=== PATIENT | female | born 2000 | race Caucasian/White ===

== ENCOUNTER 2023-07-02 03:07 | Emergency (ER) | payer OTHER, SELFPAY ==
[2023-07-02 03:13] VITALS: BP 108/68; PULSE 121; RESP 16; TEMP 37.1; O2SAT 96; BMI 25.1
[2023-07-02 03:17] VITALS: BP 114/58; PULSE 116; RESP 18; O2SAT 98
[2023-07-02 03:34] VITALS: BP 114/58; PULSE 108
[2023-07-02] MEDS: EPINEPHrine 1 MG/ML VIAL 0.3 MG IM (03:34)
[2023-07-02 04:00] VITALS: BP 118/84; PULSE 118; RESP 18; O2SAT 98
--- NOTE | 2023-07-02 04:44 | ED.GENADULT ---
HPI - General Adult General Chief complaint: Allergic Reaction Stated complaint: hives Time Seen by Provider: 07/02/23 03:29 History of Present Illness HPI narrative: The patient started to feel itchy at around 19:00 earlier this evening. Later she looked in the mirror and realized she had a lot of hives on her body. She took some Benadryl without much relief. She then called the school nurse who told her she could take an additional dose of Benadryl but she did. Finally she started to feel better and went to bed. However later in the night she woke up with increased itchiness and a full body rash and came to the emergency room. No respiratory symptoms. No difficulty swallowing. No oral symptoms. Related Data Allergies Allergy/AdvReac Type Severity Reaction Status Date / Time No Known Allergies Allergy Verified 07/02/23 03:13 Review of Systems Review of Systems: Yes all other systems are reviewed and are negative [facility] Social History Social History Smoked in Last 30 Days: No Use of substances other than those prescribed or required for medical reasons: No Advance Directives: No Advance Directives Information Provided: Yes Patient : No Physical Exam ED Vital Signs: Vital Signs - 24 hr 07/02/23 03:13 07/02/23 03:17 07/02/23 03:34 Temperature 98.8 F Pulse Rate 121 H 116 H 108 H Respiratory Rate 16 18 Blood Pressure 108/68 114/58 L 114/58 L Pulse Oximetry 96 98 Oxygen Delivery Method Room Air 07/02/23 04:00 Temperature Pulse Rate 118 H Respiratory Rate 18 Blood Pressure 118/84 Pulse Oximetry 98 Oxygen Delivery Method BMI result Body Mass Index 25.1 Const Other: The patient is awake, alert, pleasant, cooperative. She has obvious diffuse hives and some facial swelling but she is in no apparent distress. HENMT Other: The patient's face is mildly edematous with diffuse urticaria. No intraoral abnormalities however. No intraoral swelling. Eyes Other: Pupils are round equal, conjunctivae are clear, extraocular movements intact Neck Other: No stridor Resp Other: No wheezing Effort & Inspection: normal respiratory effort Auscultation: clear to auscultation bilaterally Cardio Rate: tachycardic Rhythm: regular rhythm Heart sounds: S1 normal heart sound present and S2 normal heart sound present GI Other: The abdomen is soft and nontender Skin Other: The patient has diffuse urticaria over most of her body. Neuro Other: The patient is awake and alert, calm and cooperative. Mental status is normal. She is grossly neurologically intact. Extrem Other: There are urticaria on the extremities but no associated soft tissue swelling. Medications Administered Discontinued Medications Generic Name Dose Route Start Last Admin Trade Name Ariela PRN Reason Stop Dose Admin Epinephrine 0.3 mg 07/02/23 03:30 07/02/23 03:34 Epinephrine 1 Mg/Ml Vial IM 07/02/23 03:31 0.3 mg STAT STA Administration Famotidine 40 mg 07/02/23 04:44 07/02/23 04:48 Famotidine 20 Mg Tablet PO 07/02/23 04:45 40 mg ONCE ONE Administration Loratadine 10 mg 07/02/23 04:44 07/02/23 04:48 Loratadine 10 Mg Tablet PO 07/02/23 04:45 10 mg ONCE ONE Administration Prednisone 60 mg 07/02/23 04:44 07/02/23 04:48 Prednisone 20 Mg Tablet PO 07/02/23 04:45 60 mg ONCE ONE Administration Medical Decision Making Medical Decision Making MDM Narrative: The patient presents with acute diffuse urticaria but without wheezing or signs of any airway compromise. The patient can not identify any likely candidate as an allergen that might have triggered this event. The patient was given a dose of 0.3 mg of IM epinephrine without significant change in her urticaria. The patient will be given a dose of famotidine and a dose of loratadine. Also a dose of prednisone. The patient is encouraged to use cetirizine and famotidine. The patient was given the number of the allergy office in [place] for possible follow up. Otherwise she should follow up with the [facility] Discharge Plan Discharge Clinical Impression: Urticaria Patient Disposition: Home, Self-Care Instructions: Urticaria (ED) Additional Instructions: I would avoid using the headache medication you used earlier today. For any persistent rash or itchiness I would recommend [id number] cetirizine (also known as Zyrtec). Additionally you may use [id number] famotidine (also known as Pepcid). I think it would be reasonable for you to see an human resources specialist. You were given the name and number for Dr. Gerard's office. They also have an office in [place]. Otherwise [facility]. Return to the emergency room if worse. Referrals: [facility] [Provider Group] (urticaria) Oniel Gerard DO [Physician] - (urticaria) Interventions: ED Discharge Assessment Last Done: 07/02/23 04:55 Discharge Date/Time: 07/02/23 05:10
[2023-07-02] MEDS: predniSONE 20 MG TABLET 60 MG PO (04:48)
[2023-07-02] MEDS: Famotidine 20 MG TABLET 40 MG PO (04:48)
[2023-07-02] MEDS: Loratadine 10 MG TABLET PO (04:48)
== END 2023-07-02 05:10 | disposition home or self-care (01) ==
PROVIDERS: Emergency Provider Emergency Medicine
DX: L50.0 Allergic urticaria (principal)
CPT/HCPCS: 96372; 99284; J0171